=== PATIENT | male | born 1975 | race Caucasian/White ===

== ENCOUNTER → 2016-07-20 | Outpatient (CLI) | payer BC ==
[2016-07-20 08:29] LABS: HEMOGLOBIN 15.7 gm/dl (14.0-17.5); RED BLOOD COUNT 5.34 M/UL (4.20-5.50)
[2016-07-20 08:43] LABS: BUN/CREATININE RATIO 29 (0-10)
== END ==
LOC: LAB 08:09
PROVIDERS: Family Medicine
DX: Z12.5 Encounter for screening for malignant neoplasm of prostate (principal); E78.5 Hyperlipidemia, unspecified; I10 Essential (primary) hypertension; E55.9 Vitamin D deficiency, unspecified; M19.90 Unspecified osteoarthritis, unspecified site; Z82.61 Family history of arthritis
CPT/HCPCS: 36415; 80053; 80061; 83001; 83002; 84146; 84153; 84402; 84403; 84439; 84443; 85027

== ENCOUNTER → 2016-09-01 | Outpatient (CLI) | payer BC | LOC: RAD 18:44 | DX: Z01.818 Encounter for other preprocedural examination (principal); I10 Essential (primary) hypertension; M79.671 Pain in right foot; M72.2 Plantar fascial fibromatosis; M25.571 Pain in right ankle and joints of right foot; Z87.891 Personal history of nicotine dependence | CPT/HCPCS: 71020 ==

== ENCOUNTER → 2020-08-09 | Outpatient (CLI) | payer BC, OTHER | LOC: RAD 15:20 | DX: M54.5 Low back pain (principal); M47.816 Spondylosis without myelopathy or radiculopathy, lumbar region | CPT/HCPCS: 72110 ==

== ENCOUNTER → 2020-12-26 | Outpatient (CLI) | payer BC | LOC: RAD 19:15 | DX: S93.602A Unspecified sprain of left foot, initial encounter (principal); M25.572 Pain in left ankle and joints of left foot; M19.072 Primary osteoarthritis, left ankle and foot | CPT/HCPCS: 73610; 73630 ==

== ENCOUNTER → 2021-01-06 | Outpatient (CLI) | payer BC ==
[2021-01-06 09:41] LABS: HEMOGLOBIN 16.7 gm/dl (14.0-17.5); RED BLOOD COUNT 5.36 M/UL (4.20-5.50); WHITE BLOOD COUNT 6.4 K/UL (4.5-11.0)
[2021-01-06 10:00] LABS: BUN/CREATININE RATIO 18 (0-10)
[2021-01-07 13:09] LABS: ANTI-DSDNA ANTIBODIES <1 IU/mL (0-9)
[2021-01-07 16:11] LABS: RHEUMATOID ARTHRITIS FACTOR 10.2 IU/mL (0.0-13.9)
== END ==
LOC: LAB 09:16
PROVIDERS: Physician Assistant Medical
DX: E78.2 Mixed hyperlipidemia (principal); I10 Essential (primary) hypertension; M25.50 Pain in unspecified joint; M51.36 Other intervertebral disc degeneration, lumbar region
CPT/HCPCS: 36415; 80053; 80061; 82550; 82607; 84443; 84550; 85025; 85652; 86038; 86140; 86200; 86225; 86431

== ENCOUNTER → 2021-01-08 | Outpatient (CLI) | payer BC | LOC: KOH-I 08:00 | DX: M51.36 Other intervertebral disc degeneration, lumbar region (principal) | CPT/HCPCS: 72148 ==